=== PATIENT | female | born 1995 | race Caucasian/White ===

== ENCOUNTER 2020-07-29 22:01 | Observation (INO) | payer MEDICAID, SELFPAY ==
[2020-07-29 22:10] VITALS: BMI 30.1
[2020-07-29 22:11] VITALS: BP 130/76; PULSE 99; RESP 16; O2SAT 100; BMI 29.2
[2020-07-29 22:41] LABS: Basophils % 0.1 % (0.1-2.0); Eosinophils % 0.2 % (0.1-12.0); Hematocrit 40.4 % (37.0-47.0); Hemoglobin 12.8 g/dL (12.2-16.2); Lymphocytes % 7.6 % (10-50); Mean Corpuscular HGB Conc 31.7 g/dL (31.8-35.4); Mean Corpuscular Hemoglobin 27.2 pg (27.0-31.2); Mean Corpuscular Volume 85.8 fl (81-99); Monocytes # 0.6 K/mm3 (0.1-1.0); Monocytes % 4.6 % (1.7-9.3); Neutrophils # 11.4 K/mm3 (1.8-7.8); Neutrophils % 87.5 % (37.0-80.0); Platelet Count 262 K/mm3 (142-424); Red Blood Count 4.71 M/mm3 (4.20-5.40); Red Cell Distribution Width 12.1 % (11.5-17.5)
[2020-07-29 22:44] LABS: Microscopic, Urine URINE MICROSCOPIC (MICROSCOPIC)
[2020-07-29 22:44] LABS: MANUAL DIFFERENTIAL MANUAL DIFFERENTIAL (MANUAL DIFF)
--- NOTE | 2020-07-29 22:48 | CT_ITS ---
PROCEDURE: CT ABDOMEN PELVIS W CON CLINICAL INDICATION: abd pain Lower abdominal pain with nausea vomiting and diarrhea COMPARISON: No exams were available for comparison TECHNIQUE: IV Contrast: 75ML OPTIRAY 350 Oral Contrast None Axial images obtained with sagittal and coronal reformats. All CT scans at the facility use one or more dose reduction, viz: automated exposure control, ma/kV adjustment per patient size (including targeted exams where dose is matched to indication, i.e. head), or iterative reconstruction technique. FINDINGS: The liver, spleen, adrenal glands, pancreas, and gallbladder have an unremarkable appearance.. No renal or ureteral calculi. There is minimal prominence of the right renal pelvis and proximal ureter. No definite ureteral calculus however is evident. There is thickening of the appendix measuring up to 15 mm in diameter with thickened wall and stranding of the periappendiceal fat consistent with acute appendicitis. Minimal amount of fluid is noted in the periappendiceal region. No definite abscess or obvious free air. There is a 2.5 cm right ovarian cyst. Small amount fluid in the cul-de-sac is noted. There is grade 1 spondylitic spondylolisthesis of L5 on S1. IMPRESSION: 1. Findings consistent with acute appendicitis. 2. 2.5 cm right ovarian cyst with a small amount fluid noted in the cul-de-sac. Dictated by: He Guerrero MD 07/30/2020 05:45 He Guerrero MD in [place] 07/30/2020 05:45
[2020-07-29 22:50] LABS: Appearance,Urine CLEAR (Clear); Blood, Urine Negative (Negative); Color,Urine YELLOW (Yellow); Glucose,Urine (UA) Negative (Negative); Ketones,Urine 2+ (Negative); Leukocyte Esterase,Urine Negative (Negative); Nitrate,Urine Negative (Negative); PH,Urine 6.5 (5.0-8.5); Protein,Urine Negative (Negative); Specific Gravity, Urine 1.025 (1.005-1.030); Urobilinogen,Urine 0.2 EU/dl (0.2)
[2020-07-29 22:52] LABS: Urine Pregnancy, HCG Qual. Negative (Negative)
[2020-07-29 22:53] LABS: Alanine Aminotransferase 18 U/L (12-78); Albumin Level 4.4 g/dl (3.5-5.0); Alkaline Phosphatase 89 U/L (38-126); Amylase 62 U/L (30-110); Anion Gap 14.3 mEq/L (5-15); Aspartate Amino Transferase 24 U/L (14-36); Bilirubin,Indirect 1.5 mg/dL (0.0-0.9); Bilirubin,Total 1.5 mg/dl (0.2-1.3); Bilirubin,Unconjugated 1.5 mg/dL (0.0-1.1); Blood Urea Nitrogen 10 mg/dl (7-17); Calcium 9.6 mg/dl (8.4-10.2); Carbon Dioxide 24 mmol/L (22.0-30.0); Chloride 103 mmol/L (98-107); Creatinine Clearance Estimated 211 mL/min (50-200); Estimated Glomerular Filt Rate 152 ml/min (>60); GFR (African American) 183 ML/MIN (>60); Glucose 149 mg/dl (74-100); Lipase 49 U/L (23-300); Potassium 3.3 mmoL/L (3.5-5.1); Sodium 138 mmol/L (136-145); Total Protein,Serum 7.7 g/dl (6.3-8.2)
[2020-07-29 22:58] LABS: C-Reactive Protein 9.1 mg/L (0-4)
[2020-07-29 22:59] LABS: Bilirubin,Urine Negative (Negative)
[2020-07-29 23:00] LABS: Mucus,Urine 3+ /lpf
[2020-07-29 23:02] LABS: Hypochromasia 1+; Lymphocytes % 8 % (10-50); Monocytes % 1 % (2-9); Neutrophils % 86 % (42-76); Platelet Estimate Normal; Total Cells Counted 100
[2020-07-29 23:35] VITALS: BP 113/71; PULSE 106; RESP 16; O2SAT 99
--- NOTE | 2020-07-29 23:58 | HMH.EDNVD ---
ED Disposition Clinical Impression: Acute appendicitis Qualifiers: Acute appendicitis type: unspecified acute appendicitis type Qualified Code(s): K35.80 - Unspecified acute appendicitis Disposition: Admitted As Inpatient Condition on Discharge: Good Referrals: Dariel Gaston [Primary Care Provider] - - Critical Care Critical Care Time: No Attestation: On 07/29/20, the high probability of a clinically significant, sudden or life threatening deterioration of the following system(s) required my full and direct attention, intervention and personal management. The time I documented below is in addition to time spent performing reported procedures but includes the following listed in this critical care notation. Medical Decision Making - Medical Records Medical records reviewed: Yes: I reviewed the patient's medical records. - Moi Inquiry Pt receiving controlled substance: No Vital Signs: 07/29/20 22:11 07/29/20 23:35 Pulse Rate [Right Brachial] 99 H 106 H Respiratory Rate 16 16 Blood Pressure [Right Arm] 130/76 113/71 Blood Pressure Mean [Right Arm] 94 85 Blood Pressure Source [Right Arm] Automatic Cuff Blood Pressure Position [Right Arm] Sitting 02 Sat by Pulse Oximetry 100 99 Oxygen Delivery Method Room Air Room Air - Lab Data Lab results reviewed: Yes: I reviewed the patient's lab results. Lab Results 07/29/20 22:06: Urine Color Yellow, Urine Appearance Clear, Urine pH 6.5, Ur Specific [place] 1.025, Urine Protein Negative, Urine Glucose (UA) Negative, Urine Ketones 2+, Urine Blood Negative, Urine Nitrate Negative, Urine Bilirubin Negative, Urine Urobilinogen 0.2, Ur Leukocyte Esterase Negative, Ur Squamous Epith Cells 5-10, Urine Mucus 3+ 07/29/20 22:06: Urine HCG, Qual Negative 07/29/20 22:34: WBC 13.0 H, RBC 4.71, Hgb 12.8, Hct 40.4, MCV 85.8, MCH 27.2, MCHC 31.7 L, RDW 12.1, Plt Count 262, MPV 7.0 L, Neut % (Auto) 87.5 H, Lymph % (Auto) 7.6 L, [place] % (Auto) 4.6, Eos % (Auto) 0.2, Baso % (Auto) 0.1, Neut # (Auto) 11.4 H, Lymph # (Auto) 1.0, [place] # (Auto) 0.6, Eos # (Auto) 0.0, Baso # (Auto) 0.0, Total Counted 100, Neutrophils % (Manual) 86 H, Band Neutrophils % 5.0, Lymphocytes % (Manual) 8 L, Monocytes % (Manual) 1 L, Platelet Estimate Normal, Hypochromasia 1+ 07/29/20 22:34: Sodium 138, Potassium 3.3 L, Chloride 103, Carbon Dioxide 24, Anion Gap 14.3, BUN 10, Creatinine 0.50 L, Estimated Creat Clear 211, Estimated GFR 152, Est GFR ( Amer) 183, Glucose 149 H, Calcium 9.6, Total Bilirubin 1.5 H, Direct Bilirubin 0.0, Conjugated Bilirubin 0.0, Indirect Bilirubin 1.5 H, Unconjugated Bilirubin 1.5 H, AST 24, ALT 18, Alkaline Phosphatase 89, C-Reactive Protein 9.1 H, Total Protein 7.7, Albumin 4.4, Amylase 62, Lipase 49 Result diagrams: 07/29/20 22:34 07/29/20 22:34 Orders (Tests/Meds): ED MEDICATIONS Generic Name Dose Route Start Last Admin Trade Name Freq PRN Reason Stop Dose Admin Sodium Chloride 1,000 mls @ 999 mls/hr 07/29/20 22:15 07/29/20 22:38 Sod Chlor 0.9% 1000ml Bag IV 07/29/20 23:15 999 mls/hr .[id number] JOANN Administration Discontinued Medications Generic Name Dose Route Start Last Admin Trade Name Freq PRN Reason Stop Dose Admin Ioversol 75 ml 07/29/20 23:20 07/29/20 23:20 Ioversol-350 (74%) 100ml Vial IV 07/29/20 23:21 75 ml ONCE ONE Administration Protocol Morphine Sulfate 4 mg 07/29/20 22:11 07/29/20 22:38 Morphine 4mg/Ml Syringe IV 07/29/20 22:12 4 mg ONCE ONE Administration Ondansetron HCl 4 mg 07/29/20 22:11 07/29/20 22:38 Ondansetron 4mg/2ml Vial IV 07/29/20 22:12 4 mg ONCE ONE Administration Sodium Chloride 10 ml 07/29/20 23:20 07/29/20 23:20 Sodium Chloride 0.9% 10ml Syr (Rad Only) IV 07/29/20 23:21 10 ml ONCE ONE Administration ORDERS Category Date Time Status CT abdomen pelvis w con Stat Cat Scan 07/29/20 22:48 Taken Covid-19 IgG/IgM ([facility]) Stat Lab 07/30/20 00:07 Received - CT Data CT Sc
[2020-07-30] VITALS (22 sets, daily range): BP systolic 95–117; BP diastolic 44–76; PULSE 71–112; RESP 14–20; TEMP 36.6–37.8; O2SAT 95–100; BMI 32.0; BMI 32.1
--- NOTE | 2020-07-30 00:12 | PC.NURSE ---
Page out to surgeon network relations consultant at this time
--- NOTE | 2020-07-30 00:13 | PC.NURSE ---
on phone with Dr. Chambers at this time
--- NOTE | 2020-07-30 00:18 | PC.NURSE ---
page out to pharmacy at this time
[2020-07-30 00:28] LABS: Coronavirus 19 IgG Antibody Negative (Negative); Coronavirus 19 IgM Antibody Negative (Negative)
--- NOTE | 2020-07-30 01:10 | PC.NURSE ---
Arrived to floor via wheel chair @ 0106
--- NOTE | 2020-07-30 06:08 | PC.NURSE ---
Pt A&O x4. Does not have much of medical Hx except for chronic headaches that she states is caused by increased CSF pressure. She states she is suppose to take medication for it but hasn't for some time. She also states that she has had 3 children vaginal . No additional Hx. Pt has c/o pain to abdomen that she describes as sharp, stabbing pain. Morphine administered x1. Pt has had a shower and is NPO at this time. VSS. Call light within reach. No other concerns. Will continue to monitor.
--- NOTE | 2020-07-30 06:43 | HMH.GSHP ---
HPI HPI: This is a 24-year-old female who presents the emergency department overnight with increasing abdominal pain that was more significant in the right lower quadrant. Some associated nausea and vomiting with recent diarrhea. Evaluation revealed mild leukocytosis. A CT scan was obtained in the emergency department and she changes consistent with appendicitis. Surgical service was contacted for evaluation and management. This morning she states that she feels quite a bit better . No fevers or chills. Significant decrease nausea. Forwarded from emergency department evaluation: Chief complaint: Abdominal Pain Stated complaint: abdominal pain Time Seen by Provider: 07/29/20 23:00 Mode of Arrival: Ambulatory Source of Information: Patient, Medical Record Limitations: No Limitations Description of Symptoms (Recalled from ER Triage Doc. by RN): Patient reports right sided sharp abdominal pain that started this morning. Patient reports she had diarrhea yesterday that resolved but has been vomiting. - History of Present Illness HPI Narrative: progressive rt sided abd pain since 10 am with nausea and vomiting MD complaint: nausea, vomiting, abdominal pain Onset (ago): hour(s) Associated Abdominal Pain: Yes Location of pain: RLQ Severity: moderate Quality: constant Associated symptoms: denies other symptoms H History Medical History: Denies:: Cancer, Diabetes Mellitus Type 1, Diabetes Mellitus Type 2, MRSA *Have you ever received a pneumonia vaccine?: No *Have you received a flu vaccine this season?: No Amputation: No - *Social History Last grade of school completed: Some college Smoking Status: Light tobacco smoker Tobacco Type: smokeless tobacco # Packs/Day (cigarettes): 0 Alcohol Intake: current Alcohol Intake Frequency:: holidays/special occasions only *Occupational Status:: student *Travel in the last 8 weeks: None Family Hx:: Asthma, Cancer, Coronary Artery Disease, Diabetes, Heart Attack, Hyperlipidemia, Hypertension, Stroke, Thyroid Disorder, Substance abuse, Alcoholism Review of Systems - Constitutional Denies body ache(s) - Eyes Denies change in vision - ENT Denies difficulty swallowing - *Cardiovascular Denies chest pain - *Respiratory Denies cough - *Gastrointestinal Reports abdominal pain, Reports nausea, Reports vomiting, Denies vomiting blood - *Genitourinary Denies difficulty urinating - *Musculoskeletal Denies deformity - Integumentary/Breasts Denies new lesions - *Neurologic Reports headache(s), Reports other (possible pseutotumor cerbri ) - Psychiatric Denies anxiety - Endocrine Denies cold intolerance - Hematologic/Lymphatic Denies easy bleeding - Allergic/Immunologic Denies wheezing Meds Home Medications Medication Instructions Recorded Confirmed Type No Known Home Medications 07/30/20 07/30/20 History Allergies Allergy/AdvReac Type Severity Reaction Status Date / Time milk AdvReac Mild Verified 07/30/20 04:16 Exam Vital signs and Labs for Last 24 Hours: Temp Pulse Resp BP Pulse Ox 98.0 F 84 18 97/57 L 98 07/30/20 04:00 07/30/20 04:00 07/30/20 04:00 07/30/20 04:00 07/30/20 04:00 Laboratory Results - last 24 hr 07/29/20 22:06: Urine Color Yellow, Urine Appearance Clear, Urine pH 6.5, Ur Specific [place] 1.025, Urine Protein Negative, Urine Glucose (UA) Negative, Urine Ketones 2+, Urine Blood Negative, Urine Nitrate Negative, Urine Bilirubin Negative, Urine Urobilinogen 0.2, Ur Leukocyte Esterase Negative, Ur Squamous Epith Cells 5-10, Urine Mucus 3+ 07/29/20 22:06: Urine HCG, Qual Negative 07/29/20 22:34: WBC 13.0 H, RBC 4.71, Hgb 12.8, Hct 40.4, MCV 85.8, MCH 27.2, MCHC 31.7 L, RDW 12.1, Plt Count 262, MPV 7.0 L, Neut % (Auto) 87.5 H, Lymph % (Auto) 7.6 L, [place] % (Auto) 4.6, Eos % (Auto) 0.2, Baso % (Auto) 0.1, Neut # (Auto) 11.4 H, Lymph # (Auto) 1.0, [place] # (Auto) 0.6, Eos # (Auto) 0.0, Baso # (Auto) 0.0, Total Coun
--- NOTE | 2020-07-30 06:43 | PC.NURSE ---
Pt off floor for surgery
--- NOTE | 2020-07-30 07:22 | HMH.PHAVTE ---
[facility] Pharmacy VTE Monitoring - Patient Demographics Admission date: 07/30/20 Report Date: 07/30/20 Time: 07:22 Allergies/Adverse Reactions: Patient Allergies milk Adverse Reaction (Mild, Verified 07/30/20 04:16) Height: 1.63 m Weight: 85.502 kg Patient Problems: Current Active Problems Acute appendicitis (Acute) - VTE Risk Labs: VTE Related Lab Results Hgb 12.8 g/dL (12.2-16.2) 07/29/20 22:34 Hct 40.4 % (37.0-47.0) 07/29/20 22:34 Plt Count 262 K/mm3 (142-424) 07/29/20 22:34 BUN 10 mg/dl (7-17) 07/29/20 22:34 Creatinine 0.50 mg/dl (0.52-1.04) L 07/29/20 22:34 Estimated Creat Clear 211 mL/min (50-200) 07/29/20 22:34 VTE Score: 0 VTE Risk Level: Very Low Risk - Prophylaxis VTE Prophylaxis Ordered?: Yes Types of VTE Prophylaxis: TEDS Knee High Location of Applied Device: Bilateral Lower Extremeties
--- NOTE | 2020-07-30 07:23 | HMH.PHAINT ---
MED REC- PATIENT HAS FILLED ACETAZOLAMIDE AND TOPAMAX IN THE PAST BUT HAS NOT TAKEN THESE MEDICATIONS FOR SOME TIME. CURRENTLY TAKES NO MEDICATIONS.
--- NOTE | 2020-07-30 08:33 | HMH.OPNOTE ---
Date of procedure: 07/30/20 Pre-op Diagnosis:: Appendicitis Post-op Diagnosis:: Suppurative appendicitis Procedure performed:: Laparoscopic appendectomy Surgeon:: Jung Peace MD ELECTRICAL INSTALLATION SUPERVISOR:: Gilmer Wells Anesthesia: GETClaritza Estimated blood loss (mL): 10 Operative findings:: Enlarged appendix with severe inflammatory changes and suppuration No definitive evidence of perforation Operative note:: After informed consent was obtained the patient was taken to the operating room and placed in the supine position. General anesthesia was induced and her abdomen was prepped and draped in a sterile fashion. After infiltration local anesthetic an infraumbilical incision was made. A Veress needle was placed in position. The abdomen was insufflated. A 12 mm optical trocar was placed in position. Under direct visualization a 5 mm trocar was placed in the suprapubic position and an additional 5 mm trocar was placed in the left lower quadrant. Evaluation of the right lower quadrant revealed a small amount of lower abdominal/pelvic fluid. The fluid was evacuated. The appendix was identified and found to be severely inflamed with dense posterior adhesions. Elevation of blunt dissection was utilized to separate the appendix from posterior attachments to the peritoneum and small bowel. Suppuration was noted along the entire length of the appendix; however, no obvious perforation was noted. Harmonic wolfgang were utilized to take down the mesoappendix. An Endopath 45 stapling device was utilized to take the appendix at its base. A second device and load was utilized due to the initial device not creating a complete cut. The staple line did appear to be intact from the initial and secondary device. No sign of leak or injury was noted. The appendix was placed in a retrieval bag and removed through the infraumbilical trocar site. The right lower quadrant was thoroughly irrigated. No active bleeding or injury was noted. Close evaluation of the staple line showed no signs of bleeding and no signs of incomplete closure. Again, the entire staple line/margin appeared to be intact. Pneumoperitoneum was released as the trocars were removed. All wounds were irrigated. The fascia at the infraumbilical trocar site was reapproximated with 0 Ethibond. Skin was then closed with interrupted 4-0 Monocryl. Dressings were applied and the patient was transferred to recovery in stable condition after extubation. Condition: stable Disposition: PACU Specimens:: Appendix Complications:: No immediate
--- NOTE | 2020-07-30 08:42 | P.PN_ITS ---
[facility] Anesthesia Checklist - Patient Identification Patient Identification: Arm Band, Verbal (Name & ) - Structural Data Admitted From: Home Planned Operative Procedure/s: lap appy Consent for Planned Operative Procedure(s) Verified: Yes Verified Documents: History and Physical - NPO Status Verified Time NPO: 00:00 - Chart Verification Results Verified: CBC, BMP - Additional verifications Patient : No Anesthesia Reactions: No Hx Blood Transfusions: No Blood Transfusion Reaction: No Cephalosporin Allergy: No Previous Colonoscopy: No - Cardiovascular Assessment Heart Sounds: S1 & S2 Pulse Strength: Baseline Pulse Rhythm: Regular Peripheral Edema: No - Airway Assessment C-Spine Mobility Assessed: Yes TMJ Mobility Assessed: Yes Dentition: Good Dentition - Neurological Assessment Level of Consciousness: Awake, Alert, Appropriate Hx Seizures: No Numbness or tingling in extremities: No - Anesthesia Plan Anesthesia Risk discussed: Yes Anesthesia Plan: Verified ASA Class: II Anesthesia Type: General [facility] History I have reviewed the patient's past medical history: Yes Medical History: Denies:: Cancer, Diabetes Mellitus Type 1, Diabetes Mellitus Type 2, MRSA *Have you ever received a pneumonia vaccine?: No *Have you received a flu vaccine this season?: No Anesthesia experience/problems:: none Amputation: No - *Social History Last grade of school completed: Some college Smoking Status: Light tobacco smoker Tobacco Type: smokeless tobacco # Packs/Day (cigarettes): 0 Alcohol Intake: current Alcohol Intake Frequency:: holidays/special occasions only Substance Use Type: other *Occupational Status:: student *Travel in the last 8 weeks: None Family Hx:: Asthma, Cancer, Coronary Artery Disease, Diabetes, Heart Attack, Hyperlipidemia, Hypertension, Stroke, Thyroid Disorder, Substance abuse, Alcoholism
--- NOTE | 2020-07-30 08:43 | P.PN_ITS ---
[facility] Anesthesia Record Part I Intake, IV Amount: 800 Estimated blood loss (mL): 10 Urine output (mL): 500 Blood Products used (#): none Blood Pressure: 107/69 SaO2: 98 Pulse Rate: 77 Respiratory Rate: 20 Temperature: 97.9 F Patient is:: Drowsy, Stable Stable to PACU at:: 08:40
--- NOTE | 2020-07-30 09:27 | PC.NURSE ---
0907-detailed report called to JESSE Hernández 0910-pt transported to 2nd floor room 208 via hospital bed per JESSE Bucio and [facility] with merritt rails up and left in care of JESSE Hernández with bed locked in lowest position, vss, pt stable, family at bedside
--- NOTE | 2020-07-30 09:37 | HMH.ANESII ---
[facility] Anesthesia Record Part II Discharge Time: 09:10 Destination: Medical Surgical Department PACU nurse assessment reviewed?: Yes Patient Condition:: Good Anesthesia Complications:: None Swallowing reflex intact?: Yes Cyanosis?: No Blood Pressure: 103/60 Pulse Rate: 76 Temperature: 97.9 F Mental Status: Alert & Oriented Pain level:: 2 Nausea and/or vomitting:: None Intake, IV Amount: 25
[2020-07-30 10:58] LABS: Microscopic,Cath URINE MICROSCOPIC (MICROSCOPIC)
[2020-07-30 11:00] LABS: Appearance,Urine/Cath CLEAR (Clear); Bilirubin,Cath Negative (Negative); Blood, Urine/Cath Negative (Negative); Color,Urine/Cath YELLOW (Yellow); Glucose,Urine/Cath (UA) Negative (Negative); Ketones,Urine/Cath 1+ (Negative); Leukocyte Esterase,Cath Negative (Negative); Nitrate,Cath Negative (Negative); Protein,Urine/Cath Negative (Negative); Urobilinogen,Cath 0.2 EU/dl (0.2)
[2020-07-30 11:07] LABS: RBC,Urine/Cath Occasional # /hpf (0-3); Squamous Epithelial Ur./Cath Occasional #/hpf (0-5)
--- NOTE | 2020-07-30 16:55 | PC.NURSE ---
Addendum entered by Natalie Guzmán RN 07/30/20 18:39: Pt does report passing flatus. Original Note: Pt remains on room air w/ no s/s of resp distress. Reports burning sensation to abdomen, rating 3/10. Pt reports pain tolerable and has not requested pain medication at this point. Has voided twice since surgery w/o difficulty. Ambulates w/ standby assistance w/ no safety concerns. Tolerating clear liquid diet w/ no c/o nausea. Pt is A&O x4. Lungs CTA. Abdomen soft, tender w/ active BS in all quads. No BM this shift. 3 lap site incision, remain unchanged from initial assessment this AM. One below umbilicus has small amount of serosang drainage present. No edema noted. Pt requests not to wear SCUDS, was educated on prophylactic use. Call butts w/in reach. No needs voiced.
--- NOTE | 2020-07-30 19:14 | PC.NURSE ---
report given to maris
[2020-07-31] VITALS: BP 100/71; PULSE 98; RESP 18; TEMP 36.7; O2SAT 96
--- NOTE | 2020-07-31 01:47 | PC.NURSE ---
A&OX4. PANEL LAMINATOR EQUAL BILAT. LUNGS CLEAR T/O AUSCULTATION. TOLERATED RA WELL. PULSES +2, CAP REFILL <3SEC. ABDOMEN NOTED NONDISTENDED, ACTIVE BOWEL SOUNDS, SOFT AND RLQ TENDERNESS WITH PALPATION. 3 DRESSINGS NOTED TO ABDOMEN WITH UNCHANGED AMOUNT OF DRAINAGE FROM INITIAL ASSESSMENT. REPORTS PASSING FLATUS. REPORTS PAIN IN MID LOWER ABDOMINAL REGION AND SOME DISCOMFORT WITH DEEP INHALATION IN RUQ OF ABDOMEN, MEDICATED PER MAR WITH PRN PAIN MEDICATION, ON REASSESSMENT PT WAS NOTED RESTING IN BED WITH EYES CLOSED. TOLERATED CLEAR LIQUIDS WELL. AMBULATE INDEPENDENTLY IN ROOM, TOLERATED WELL. VSS. WILL CONTINUE TO MONITOR.
[2020-07-31 04:30] VITALS: BP 100/72; PULSE 62; RESP 18; TEMP 36.5; O2SAT 92
[2020-07-31 05:07] VITALS: BMI 33.7
[2020-07-31 06:15] LABS: Chloride 106 mmol/L (98-107); Sodium 137 mmol/L (136-145)
[2020-07-31 06:17] LABS: Basophils % 0.2 % (0.1-2.0); Eosinophils % 0.1 % (0.1-12.0); Hematocrit 32.2 % (37.0-47.0); Hemoglobin 10.2 g/dL (12.2-16.2); Lymphocytes % 29.7 % (10-50); Mean Corpuscular HGB Conc 31.5 g/dL (31.8-35.4); Mean Corpuscular Hemoglobin 27.4 pg (27.0-31.2); Mean Corpuscular Volume 86.8 fl (81-99); Mean Platelet Volume 7.4 fl (7.4-10.4); Monocytes # 0.4 K/mm3 (0.1-1.0); Monocytes % 5.6 % (1.7-9.3); Neutrophils # 4.3 K/mm3 (1.8-7.8); Neutrophils % 64.4 % (37.0-80.0); Platelet Count 221 K/mm3 (142-424); Red Blood Count 3.71 M/mm3 (4.20-5.40); Red Cell Distribution Width 12.3 % (11.5-17.5); White Blood Count 6.7 K/mm3 (4.8-10.8)
[2020-07-31 06:18] LABS: Creatinine Clearance Estimated 205 mL/min (50-200); Estimated Glomerular Filt Rate 123 ml/min (>60); GFR (African American) 149 ML/MIN (>60)
[2020-07-31 06:19] LABS: Anion Gap 7.9 mEq/L (5-15); Carbon Dioxide 26 mmol/L (22.0-30.0); Glucose 84 mg/dl (74-100)
[2020-07-31 06:27] LABS: Potassium 2.9 mmoL/L (3.5-5.1)
--- NOTE | 2020-07-31 06:27 | INFXCTL.NOTE ---
PT REPORTS URINE IS CLEAR AND YELLOW.
[2020-07-31 06:54] LABS: Blood Urea Nitrogen 7 mg/dl (7-17); Calcium 7.8 mg/dl (8.4-10.2)
[2020-07-31 07:54] VITALS: BP 98/61; PULSE 83; RESP 17; TEMP 36.7; O2SAT 100
--- NOTE | 2020-07-31 08:13 | HMH.GSPN ---
Subjective Patient reports: no new complaints, pain is less Progress Note: A&P (1) Acute appendicitis Status: Acute (2) Suppurative appendicitis Status: Acute Assessment and plan: Overall, doing well status post laparoscopic appendectomy. Continue antibiotics for now for suppurative nature of appendicitis Likely discharge home later today (3) Hypokalemia Status: Acute Assessment and plan: Replace potassium Exam Vital signs and Labs for Last 24 Hours: Temp Pulse Resp BP Pulse Ox 98.1 F 83 17 98/61 L 100 07/31/20 07:54 07/31/20 07:54 07/31/20 07:54 07/31/20 07:54 07/31/20 07:54 Laboratory Results - last 24 hr 07/30/20 07:10: Urine Color Yellow, Urine Appearance Clear, Urine pH 6.0, Ur Specific [place] 1.020, Urine Protein Negative, Urine Glucose (UA) Negative, Urine Ketones 1+, Urine Blood Negative, Urine Nitrate Negative, Urine Bilirubin Negative, Urine Urobilinogen 0.2, Ur Leukocyte Esterase Negative, Urine RBC Occasional, Urine WBC 3-5, Ur Squamous Epith Cells Occasional 07/31/20 05:34: WBC 6.7 D, RBC 3.71 L, Hgb 10.2 L, Hct 32.2 L, MCV 86.8, MCH 27.4, MCHC 31.5 L, RDW 12.3, Plt Count 221, MPV 7.4, Neut % (Auto) 64.4, Lymph % (Auto) 29.7, [place] % (Auto) 5.6, Eos % (Auto) 0.1, Baso % (Auto) 0.2, Neut # (Auto) 4.3, Lymph # (Auto) 2.0, [place] # (Auto) 0.4, Eos # (Auto) 0.0, Baso # (Auto) 0.0 07/31/20 05:34: Sodium 137, Potassium 2.9 L*, Chloride 106, Carbon Dioxide 26, Anion Gap 7.9, BUN 7 D, Creatinine 0.60, Estimated Creat Clear 205, Estimated GFR 123, Est GFR ( Amer) 149, Glucose 84, Calcium 7.8 L D I & O for Last 24 hours: Intake & Output 10/10/20 10/11/20 10/12/20 10/13/20 11:59 11:59 11:59 11:59 Intake Total 1180 / 1180 1717 / 1717 Balance 1180 / 1180 1717 / 1717 Weight 188 lb 8 oz 197 lb 9 oz - Constitutional no acute distress - *Routine Respiratory Exam Absent: respiratory distress - *Routine Cardiovascular Exam Present: RRR - *Routine Abdominal Exam Present: soft Comments: dressings intact. no erythema.
[2020-07-31 08:20] VITALS: O2SAT 100
--- NOTE | 2020-07-31 10:24 | PC.NURSE ---
umbilical incision cleaned with alcohol and re-dressed with telfa and tegaderm per Dr. Peace's instruction. Patient tolerated well.
--- NOTE | 2020-07-31 11:58 | HMH.DCSUM ---
General - General Admission date:: 07/30/20 Discharge date: 07/31/20 HPI HPI: This is a 24-year-old female who presents the emergency department overnight with increasing abdominal pain that was more significant in the right lower quadrant. Some associated nausea and vomiting with recent diarrhea. Evaluation revealed mild leukocytosis. A CT scan was obtained in the emergency department and she changes consistent with appendicitis. Surgical service was contacted for evaluation and management. This morning she states that she feels quite a bit better . No fevers or chills. Significant decrease nausea. Forwarded from emergency department evaluation: Chief complaint: Abdominal Pain Stated complaint: abdominal pain Time Seen by Provider: 07/29/20 23:00 Mode of Arrival: Ambulatory Source of Information: Patient, Medical Record Limitations: No Limitations Description of Symptoms (Recalled from ER Triage Doc. by RN): Patient reports right sided sharp abdominal pain that started this morning. Patient reports she had diarrhea yesterday that resolved but has been vomiting. Hospital Course Hospital Course: She underwent laparoscopic appendectomy. Please see operative report for detail. Significant suppurative changes were noted. Postoperatively, she progressed well. She was maintained on Zosyn secondary to the suppurative nature of her appendicitis. She remained afebrile with stable and normal vital signs and was deemed appropriate for discharge home on the afternoon of postoperative day 1. She was found to have hypokalemia with a potassium of 2.9 on the morning of postoperative day 1. Replacement was implemented and follow-up will be ongoing. She was without symptoms. Condition at discharge: As stated above, she was afebrile with stable and normal vital signs. She was ambulating without difficulty and tolerating slow advancement of her diet. Objective Vital signs: Temp Pulse Resp BP Pulse Ox 98.1 F 83 17 98/61 L 100 07/31/20 07:54 07/31/20 07:54 07/31/20 07:54 07/31/20 07:54 07/31/20 08:20 no acute distress - *Routine HEENT Exam Head: Present: normocephalic Eye: Absent: scleral injection ENT: Present: mucous membranes moist - *Routine Neck Exam Present: full ROM - Routine Chest/Breast/Axilla Exam Chest wall: Absent: tenderness - *Routine Respiratory Exam Absent: respiratory distress - *Routine Cardiovascular Exam Present: RRR - *Routine Abdominal Exam Present: soft - *Routine Rectal Exam Visual: Absent: lindsey blood - *Routine Exam Patient deferred: external exam - *Routine Extremities Exam Present: full ROM - Routine Back/Spine/Pelvis Exam Back/Spine: Present: full ROM - *Routine Skin Exam Absent: erythema - *Routine Neurological Exam Present: alert - Routine Psychiatric Exam Present: normal affect Results Labs on day of discharge: Labs from last 24 hours 07/31/20 07/31/20 05:34 05:34 WBC 6.7 D RBC 3.71 L Hgb 10.2 L Hct 32.2 L MCV 86.8 MCH 27.4 MCHC 31.5 L RDW 12.3 Plt Count 221 MPV 7.4 Neut % (Auto) 64.4 Lymph % (Auto) 29.7 Powell % (Auto) 5.6 Eos % (Auto) 0.1 Baso % (Auto) 0.2 Neut # (Auto) 4.3 Lymph # (Auto) 2.0 Powell # (Auto) 0.4 Eos # (Auto) 0.0 Baso # (Auto) 0.0 Sodium 137 Potassium 2.9 L* Chloride 106 Carbon Dioxide 26 Anion Gap 7.9 BUN 7 D Creatinine 0.60 Estimated Creat Clear 205 Estimated GFR 123 Est GFR ( Amer) 149 Glucose 84 Calcium 7.8 L D DS: Diagnosis - Discharge Diagnosis (1) Suppurative appendicitis Status: Acute (2) Hypokalemia Status: Acute Discharge Plan - Patient Discharge Instructions ACTIVITY: No heavy lifting DIET: advance to your usual diet Patient Instructions: How to Care for a Surgical Wound, DI for Appendicitis -- Adult, DI for Surgical Site Infection, Appendectomy -- Laparoscopic Surgery - Follow u
[2020-07-31 12:16] LABS: Potassium 3.6 mmoL/L (3.5-5.1)
--- NOTE | 2020-07-31 13:40 | PC.NURSE ---
all care and charting done under my direct supervision
== END 2020-07-31 13:41 | disposition home or self-care (01) ==
LOC: ER 07-30 00:23 → 2ND 07-30 00:50
PROVIDERS: Admitting Provider Surgery; Emergency Provider Emergency Medicine; PCP Family Medicine; Visit Provider Surgery
PROC: (CPT 44950; principal; 2020-07-30 07:30)
DX: K35.80 Unspecified acute appendicitis (principal); E87.6 Hypokalemia; Z23 Encounter for immunization
CPT/HCPCS: 44970; 74177; 80048; 80076; 81001; 81025; 82150; 83690; 84132; 85007; 85025; 86140; 86328; 88304; 90686; 96365; 96375; 99284; G0378; J2405; J2543; J2710; Q9967

== ENCOUNTER 2020-08-21 08:31 | Emergency (ER) | payer MEDICAID, SELFPAY ==
[2020-08-21 08:44] VITALS: BP 111/76; PULSE 87; RESP 17; TEMP 37.1; O2SAT 98; BMI 29.2
--- NOTE | 2020-08-21 08:55 | XR_ITS ---
PROCEDURE: XR ANKLE LT MIN 3V CLINICAL INDICATION: ankle pain and swelling COMPARISON: No exams were available for comparison FINDINGS: No fracture or dislocation. No lytic or blastic change. There is normal mineralization. The joint spaces are well-preserved. No significant degenerative/arthritic changes. No erosive changes evident. Other findings:None. IMPRESSION: No acute findings. Dictated by: He Guerrero MD 08/21/2020 10:26 He Guerrero MD in [place] 08/21/2020 10:26
--- NOTE | 2020-08-21 09:30 | HMH.EDGENADL ---
ED Disposition Clinical Impression: Left ankle sprain Qualifiers: Encounter type: initial encounter Involved ligament of ankle: anterior talofibular ligament Qualified Code(s): S93.492A - Sprain of other ligament of left ankle, initial encounter Disposition: Home, Self-Care Condition on Discharge: Good Referrals: Dariel Gaston [Primary Care Provider] - - Critical Care Critical Care Time: No Attestation: On 08/21/20, the high probability of a clinically significant, sudden or life threatening deterioration of the following system(s) required my full and direct attention, intervention and personal management. The time I documented below is in addition to time spent performing reported procedures but includes the following listed in this critical care notation. Medical Decision Making - Medical Records Medical records reviewed: Yes: I reviewed the patient's medical records. - Moi Inquiry Pt receiving controlled substance: No Vital Signs: 08/21/20 08:44 Temperature 98.7 F Temperature Source Oral Pulse Rate [Left] 87 Respiratory Rate 17 Blood Pressure [Right Arm] 111/76 Blood Pressure Mean [Right Arm] 87 Blood Pressure Source [Right Arm] Automatic Cuff Blood Pressure Position [Right Arm] Sitting 02 Sat by Pulse Oximetry 98 Oxygen Delivery Method Room Air Orders (Tests/Meds): ORDERS Category Date Time Status XR ankle LT min 3V Stat Exams 08/21/20 08:55 Taken - Radiology Data #1 Image(s): Ankle Image Reviewed: Yes I reviewed the patient's radiology results, Yes I reviewed the patient's radiology image Preliminary Findings: Normal/NAD, No Fracture Seen - Reevaluation(s) Time: 09:34 Reevaluation #1: On reevaluation, patient is feeling better. No evidence of fracture. Repeat abdominal exam is normal. Tolerating oral intake. Patient needs follow-up with primary surgeon. Given strict return precautions. Verbalized understanding. Medical Decision Narrative: 25-year-old female presented to the emergency department with ankle pain. Consistent with ankle sprain. X-ray will be obtained for possible fracture. With regards to the patient's abdominal pain, appears to be chronic postsurgical. Patient is to follow-up with her primary surgeon. There is no evidence of acute abdomen. She is tolerating oral intake. Hemodynamically stable. Afebrile. General Adult HPI - General Chief complaint: PAIN Stated complaint: stomach pain,AO [id number] right ankle Time Seen by Provider: 08/21/20 08:50 Mode of Arrival: Ambulatory Limitations: No Limitations Description of Symptoms (Recalled from ER Triage Doc. by RN): left ankle pain. Abdominal pain. Appendix taken out 3 weeks ago. Denies N/V/D - History of Present Illness HPI narrative: This is a 25-year-old female presented to the emergency department with left ankle pain. The patient states that she was getting out of the car when her foot was asleep. She rolled her ankle and states that she hit it on the concrete. Since then she has been having some pain and swelling in the ankle. Worse on the lateral side. Patient is able to bear weight, however it is tender. She denies any other injuries. Of note, the patient is endorsing some abdominal discomfort for the last 3 weeks. She had her appendix removed at that time. She does feel some diffuse cramping. There is no focal tenderness. Patient is still tolerating oral intake without any difficulties. She has not had any fevers or chills. No vomiting or diarrhea. She did have any chest pain or shortness of breath. No headache or change in vision. - Related Data Home Medications Medication Instructions Recorded Confirmed Potassium Chloride [K-Tab ER 20 20 meq PO BID 08/21/20 08/21/20 mEq] Allergies Allergy/AdvReac Type Severity Reaction Status Date / Time milk AdvReac Mild Verified 08/21/20 09:04 [facility] History - Hepatitis A Screen Drug use history?: No High risk sexu
[2020-08-21 09:32] VITALS: BP 111/76; PULSE 87; RESP 17; TEMP 37.1; O2SAT 98
== END 2020-08-21 09:45 | disposition home or self-care (01) ==
PROVIDERS: Emergency Provider Emergency Medicine; PCP Family Medicine
DX: S93.402A Sprain of unspecified ligament of left ankle, initial encounter (principal); X50.1XXA Overexertion from prolonged static or awkward postures, initial encounter; Y92.89 Other specified places as the place of occurrence of the external cause; F17.290 Nicotine dependence, other tobacco product, uncomplicated
CPT/HCPCS: 73610; 99282

== ENCOUNTER → 2021-09-20 20:36 | Outpatient (CLI) | payer MEDICAID, SELFPAY | PROVIDERS: PCP Family Medicine; Visit Provider Nurse Practitioner Family | DX: U07.1 COVID-19 (principal) | CPT/HCPCS: C9803; U0003; U0005 ==

== ENCOUNTER 2021-10-28 18:51 | Emergency (ER) | payer MEDICAID, SELFPAY ==
[2021-10-28 19:55] VITALS: BP 122/84; PULSE 94; RESP 20; TEMP 37; O2SAT 99; BMI 32.5
--- NOTE | 2021-10-28 20:15 | HMH.EDUTC ---
[facility] [place] Clinical Impression: Exposure to COVID-19 virus, Viral syndrome Disposition: Home, Self-Care Condition on Discharge: Good Instructions: Preventing the Spread of Coronavirus Discharge Instructions, DI for COVID-19 (Suspected or Confirmed ) Additional Instructions: Drink plenty of fluids. Take tylenol for pain or fever. Return if you begin to have difficulty breathing. Follow up with your regular doctor. GO TO THE ER FOR ANY WORSENING SYMPTOMS Quarantine until you know the results of your covid-19 test. If it is positive, the health department should call you and give you further instructions about your length of Quarantine and other things. Notify your school or workplace of your results and follow their instructions regarding return to work/school. Referrals: Dariel Gaston [Primary Care Provider] - Forms: Work/School Release Time of Disposition: 20:18 Medical Decision Making - Medical Records Medical records reviewed: No: I reviewed the patient's medical records. - Moi Inquiry Pt receiving controlled substance: No Vital Signs: 10/28/21 19:55 Temperature 98.6 F Temperature Source Oral Pulse Rate [Right Brachial] 94 H Respiratory Rate 20 Blood Pressure [Right Arm] 122/84 Blood Pressure Mean [Right Arm] 96 Blood Pressure Source [Right Arm] Automatic Cuff Blood Pressure Position [Right Arm] Sitting 02 Sat by Pulse Oximetry 99 Oxygen Delivery Method Room Air Orders (Tests/Meds): ORDERS Category Date Time Status Covid-19 Nasal PCR ([facility] [place]) Routine Lab 10/28/21 20:08 Ordered [facility] [place]PI - General Stated complaint: covid test Time Seen by Provider: 10/28/21 20:16 Mode of Arrival: Ambulatory Source of Information: Patient Limitations: No Limitations Description of Symptoms (Recalled from Triage Doc. by RN): PATIENT NEEDING COVID TEST TO RETURN TO WORK AFTER DIRECT EXPOSURE. C/O HEADACHE AND SORE THROAT HEENT Symptoms (Recalled from RN notes): Yes Resp Symptoms (Recalled from RN notes): No Skin Symptoms (Recalled from RN notes): No MS Symptoms (Recalled from RN notes): No Functional Status (Recalled from RN notes): WNL - History of Present Illness Provider Complaint: She was exposed to covid-19 about 5 days ago. She started having a head ache and scratchy throat today. She had covid-19 about 3 months ago. She denies any cough or congestion. - Related Data Home Medications Medication Instructions Recorded Confirmed Potassium Chloride [K-Tab ER 20 20 meq PO BID 08/21/20 06/11/21 mEq] acetazolamide 250 mg tablet 250 mg PO DAILY 06/11/21 06/11/21 metformin 500 mg tablet 500 mg PO DAILY 06/11/21 06/11/21 trazodone 50 mg tablet 50 mg PO HS PRN 06/11/21 06/11/21 Allergies Allergy/AdvReac Type Severity Reaction Status Date / Time milk AdvReac Mild Verified 06/11/21 12:27 - Worker's Comp Is this a Worker's Comp case?: No [facility] [place] History - Hepatitis A Screen Drug use history?: No High risk sexual behaviors?: No History of sexually transmitted infection?: No Currently employed?: No Childcare worker?: No Do you have indoor plumbing?: Yes Do you have electricity?: Yes Attestation statement:: This patient has been screened for Hepatitis A risk factors. I have reviewed the patient's past medical history: Yes Medical History: Reports:: Migraine Denies:: Cancer, Diabetes Mellitus Type 1, Diabetes Mellitus Type 2, Internal Pacemaker, MRSA, Seizures Other Medical History: Denies: Blood Transfusion Reaction Other Surgeries: Yes: Appendectomy. No: Pacemaker Amputation: No Fractures: No - Social History Smoking Status: Light tobacco smoker Tobacco Type: smokeless tobacco # Packs/Day (cigarettes): 0 Alcohol Intake: never Alcohol Intake Frequency:: holidays/special occasions only Substance Use Type: other Occupational Status: other Housing: apartment Household Members: significant other Family Hx:: Asthma, Cancer, Coronary Artery Disease, Di
[2021-10-28 20:17] VITALS: BP 122/84; PULSE 94; RESP 20; TEMP 37; O2SAT 99
== END 2021-10-28 20:22 | disposition home or self-care (01) ==
PROVIDERS: Emergency Provider Nurse Practitioner Family; PCP Family Medicine
DX: B34.9 Viral infection, unspecified (principal); Z20.822 Contact with and (suspected) exposure to COVID-19; F17.290 Nicotine dependence, other tobacco product, uncomplicated
CPT/HCPCS: 99202; C9803; G0463; U0003; U0005

== ENCOUNTER 2024-10-20 13:30 | Outpatient (CLI) | payer BC, SELFPAY ==
--- NOTE | 2024-10-20 13:32 | MR_ITS ---
FINAL REPORT TECHNIQUE: Multiplanar and multisequence MR imaging was obtained through the thoracic spine. CLINICAL HISTORY: post laminectomy syndrome (spinal cord stimulator workup , evaluate patency of thoracic canal for placement of percutaneous stimulator lead , entry point t12/l1 termination of tip likely t7 superior endplate ) this is on patients order to note COMPARISON: None FINDINGS: There is normal alignment of the thoracic vertebral bodies in the sagittal plane. Vertebral body height is preserved. There is no bone marrow edema or pathologic marrow replacement. Signal intensity within the substance of the spinal cord is normal. No acute paraspinal abnormality. There is no focal disc herniation, central canal stenosis, or significant foraminal narrowing. IMPRESSION: Unremarkable MR of the thoracic spine without contrast. Reviewed, Interpreted and Dictated by Tea De La Rosa MD Transcribed by Krystina Marroquin Authenticated and [facility]
== END 2024-10-20 23:59 | disposition home or self-care (01) ==
LOC: RAD 13:30
PROVIDERS: PCP Family Medicine; Visit Provider Anesthesiology
DX: M96.1 Postlaminectomy syndrome, not elsewhere classified (principal)
CPT/HCPCS: 72146

== ENCOUNTER 2024-11-28 16:13 | Outpatient (CLI) | payer BC, SELFPAY ==
[2024-11-28 17:19] LABS: Hemoglobin A1C 4.4 % (4.0-6.0)
== END 2024-11-28 23:59 | disposition home or self-care (01) ==
LOC: LAB 16:14
PROVIDERS: PCP Family Medicine; Visit Provider Anesthesiology
DX: M96.1 Postlaminectomy syndrome, not elsewhere classified (principal)
CPT/HCPCS: 36415; 83036

== ENCOUNTER 2025-05-12 13:00 | Outpatient (RCR) | payer BC, SELFPAY | END 2025-05-12 23:59 | disposition home or self-care (01) | LOC: PT 13:00 | PROVIDERS: Visit Provider Physician Assistant | DX: M96.1 Postlaminectomy syndrome, not elsewhere classified (principal) | CPT/HCPCS: 97110; 97112; 97162; 97530 ==

== ENCOUNTER 2025-06-14 10:00 | Outpatient (RCR) | payer BC, SELFPAY | END 2025-06-14 23:59 | disposition home or self-care (01) | LOC: PT 10:00 | PROVIDERS: Visit Provider Physician Assistant | DX: M96.1 Postlaminectomy syndrome, not elsewhere classified (principal) | CPT/HCPCS: 97110; 97530 ==

== ENCOUNTER 2025-07-18 11:00 | Outpatient (RCR) | payer BC, SELFPAY | END 2025-07-18 23:59 | disposition home or self-care (01) | LOC: PT 11:00 | PROVIDERS: Visit Provider Physician Assistant | DX: M96.1 Postlaminectomy syndrome, not elsewhere classified (principal) | CPT/HCPCS: 97110; 97112; 97530 ==

== ENCOUNTER 2025-08-08 11:00 | Outpatient (RCR) | payer BC, SELFPAY | END 2025-08-08 23:59 | disposition home or self-care (01) | LOC: PT 11:00 | PROVIDERS: Visit Provider Physician Assistant | DX: M96.1 Postlaminectomy syndrome, not elsewhere classified (principal) | CPT/HCPCS: 97110; 97530 ==

== ENCOUNTER 2025-08-10 10:08 | Outpatient (CLI) | payer BC, SELFPAY ==
--- NOTE | 2025-08-10 10:15 | XR_ITS ---
FINAL REPORT CLINICAL HISTORY: SPONDYLOSIS - CHECKING FOR SPINAL STIMULATOR PLACEMENT FOR MRI FINDINGS: CERVICAL SPINE Three views were obtained. There is no acute fracture. The disc spaces are well-preserved. There is no malalignment. IMPRESSION: No acute process. THORACIC SPINE Two views were obtained. There is no acute fracture. There are minimal degenerative changes. There is no malalignment. There is very minimal endplate spurring in the mid and lower thoracic spine. A spinal stimulator is seen in the dorsal spinal canal with the stimulator lead tip at the T7 level. IMPRESSION: Minimal degenerative changes. LUMBAR SPINE Three views were obtained. There is no acute fracture. The disc spaces are well-preserved. Patient is status post fusion at L5-S1. There is minimal anterolisthesis of L5 on S1. IMPRESSION: Surgical changes in the lumbosacral junction. Reviewed, Interpreted and Dictated by Dominga Hill MD Transcribed by Radha Flores Authenticated and . [facility]
--- OUTSIDE RECORDS SUMMARY | 2025-08-10 10:46 | XMS_ITS | Clinical Summary ---
Author Organization [facility] Address [address] [place] [address] Phone Care Team Providers Care Insole Channeler Name Role Phone Nazia Gallegos MD Unavailable [phone] Dariel Gaston DO Primary Care Provider [phone] Dee Dee Cutler MD Unavailable [phone] Allergies Active Allergy Reactions Criticality Noted Date Comments Milk Nausea And Vomiting Medium 09/19/2020 Medications * This document contains information received from the source organization and may not represent a complete record from that organization. tirzepatide, weight loss, (ZEPBOUND) 10 mg/0.5 mL SubQ Pen InjectorIndicat ions:Obesity, Class I, BMI 30-34.9 Subcutaneous (Inject under the skin) 10 mg once a week. 4 mL 11 5 Active DULoxetine (CYMBALTA) 30 mg Oral Capsule, Delayed Release(E.C.)In dications:Curre nt moderate episode of major depressive disorder without prior episode (HCC) Take 1 Capsule by mouth daily. 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 Baseline HVF with scattered defects OD > OS. OCT nfl demonstrates significant improvement in thickness OU and dilated exam also with marked improvement from initial presentation. This improvement continues on exam today. Patient has seen neurosurgery at and they advised patient to have a consult with ophthalmology to determine need for surgery. Patient states not going back to and doesn't want to return. Most recently saw neurosurgery in [place] and a stent was attempted but aborted due to pre-existing patency. Patient was offered shunt, ON fenestration, or continued diamox. Patient chose to continue diamox. Most recent repeat HVF stable OD slight worsening OS. Will repeat this. Continue diamox. Exam improved. Discussed importance of compliance with medication and communication with prescribing providers. Assessment & Plan (10/24/2021 3:43 PM EST): Patient with marked elevation OU consistent with elevated ICP on initial presentation. Baseline HVF with scattered defects OD > OS. OCT nfl demonstrates significant improvement in thickness OU and dilated exam also with marked improvement from initial presentation. This improvement remains stable. Patient has seen neurosurgery at and they advised patient to have a consult with ophthalmology to determine need for surgery. Patient states not going back to and doesn't want to return. Patient to continue medication as previously prescribed (diamox). Patient states she did not have any refills on the diamox so she stopped, has not taken since 08/2021. Patient states neurology is unaware that she is not on medication. Most recent repeat HVF stable OD slight worsening OS. Discussed importance of compliance with medication and communication with prescribing providers. Assessment & Plan (10/21/2021 1:25 PM EST): Patient with marked elevation OU consistent with elevated ICP on initial presentation. Baseline HVF with scattered defects OD > OS. OCT nfl demonstrates significant improvement in thickness OU and dilated exam also with marked improvement from initial presentation. Patient has seen neurosurgery at and they advised patient to have a consult with ophthalmology to determine need for surgery. Patient states not going back to and doesn't want to return. Patient to continue medication as previously prescribed (diamox) Repeat HVF stable OD slight worsening OS. Assessment & Plan (04/26/2021 11:55 AM EDT): Patient with marked elevation OU consistent with elevated ICP on initial presentation. Baseline HVF with scattered defects OD > OS. OCT nfl demonstrates significant improvement in thickness OU and dilated exam also with marked improvement from initial presentation. Patient has seen neurosurgery at and they advised patient to have a consult with ophthalmology to determine need for surgery. Patient states not going back to and doesn't want to return. Patient to continue medication as previously prescribed (diamox) Repeat HVF Assessment & Plan (08/20/2020 1:58 PM EST): Patient with marked elevation OU consistent with elevated ICP on initial presentation. Baseline HVF with scattered defects OD > OS. OCT nfl demonstrates significant improvement in thickness OU and dilated exam also with marked improvement. MRI/MRV consistent with elevated ICP and venous stenosis. Patient has seen neurosurgery at and they advised patient to have a consult with ophthalmology to determine need for surgery. Discussed today's findings with patient and she will proceed with ophthalmology evaluation to determine next best steps. Patient to continue medication as previously prescribed. Assessment & Plan (05/01/2020 9:08 AM EDT): Patient with marked elevation OU consistent with elevated ICP. Baseline HVF with scattered defects OD > OS. OCT nfl demonstrates significant thickening OU. MRI/MRV consistent with elevated ICP and venous stenosis. Agree with proceeding as planned with neurology/neurosurgery. Assessment & Plan (04/19/2020 11:37 AM EDT): Patient with marked elevation OU consistent with elevated ICP. Will obtain baseline HVF. OCT nfl demonstrates significant thickening OU. MRI/MRV consistent with elevated ICP and venous stenosis. Agree with proceeding as planned with neurology/neurosurgery. Normal labor 11/18/2016 Decreased movement 11/03/2016 Lost custody of children 10/06/2016 Overview (10/06/2016): Attends family court. Two oldest children are under temporary care of Keily's father and step mother Custody lost february 2016 d/t oldest having a black eye suspected trauma from fob? Under Psychologist care Dr. Shaikh Supervision of normal in first trimest er 05/14/2016 Overview (10/06/2016): CNM pt It's a BOY! Lanxton PNL wnl Boy baby Anatomy ok Declined quad / cf / flu shot GCT 175--> GTT wnl Resolved Problems Problem Noted Date Diagnosed Date Resolved Date (normal spontaneous vaginal delivery) 11/19/2016 12/22/2016 Overview (11/19/2016): VMI- Lanxton 7# 10oz circ btl Nuchal cord with compression , delivered, current hospitalization 11/19/2016 12/22/2016 uterine contractions in third trimester, antepartum 11/04/2016 12/22/2016 Uterine irritability 11/03/2016 017 Short interval between pregn ancies complicating in first trimester, antepartum 05/14/2016 12/22/2016 Overview (05/14/2016): Last baby April 2015 (spontaneous vaginal delivery) 04/28/2015 05/14/2016 Overview (04/28/2015): Male @ 1114 Encounter for suspected yadira ature rupture of amniotic membranes, with rupture of membranes not found 04/22/2015 06/12/2015 Overview (04/22/2015): 36.2wk 36 weeks gestation of 04/22/2015 06/12/2015 Overview (04/22/2015): 36.2wk IUP r/o PPROM labor in third trime ster without delivery 04/22/2015 06/12/2015 Overview (04/22/2015): 36.2wk IUP Vaginal bleeding during , antepartum 04/11/20 15 06/12/2015 Overview (04/11/2015): 34.5wk IUP Rubella non-immune status, antepartum 12/18/2014 06/12/2015 Overview (12/18/2014): MMR pp Supervision of normal 10/23/2014 06/12/2015 Overview (01/15/2015): CNM PT PNLs NL except for Rubella non immune Declined Quad, CF 11/20/14 It's a boy! Yara Schmid Irregular periods 10/23/2014 12/18/2014 Overview (10/23/2014): U/S 10/23/2014----> Recommend correction of the CANELO to 05/18/2015, as well as a repeat scan at 20 weeks gestation to evaluate anatomy. Encounters Date Type Department Care Team Description 05/16/2025 4:15 PM EDT Office Visit [facility] [address] [place] [address] Dariel Gaston DO Acute bacterial sinusitis (Primary Dx); Trujillo's palsy from Last 3 Months Immunizations Immunization Administration Dates Next Due DTP/HiB 11/18/1996,01/28/1996,1995 DTaP, Unspecified Formulation 06/01/2000 HPV Quadrivalent 05/27/2011,12/09/2010, 0 Hepatitis B, Adult 05/17/2020,06/18/2019 Hepatitis B, Ped/Adol 08/10/1996 IPV 06/01/2000 Influenza Vaccine Quadrivalent PF 09/03/2023,,08/02/2019 Influenza Vaccine, Unspecifi ed Formulation 07/30/2020 MMR 04/29/2015,06/01/2000,11/18/1996 MMRV 05/17/2020 OPV-Trivalent 01/28/1996,1995 PPD Test 05/16/2020,06/18/2019 Tdap 05/17/2020, 7,04/29/2015,2006 Varicella 02/21/1997 Surgical History Surgery Date Site/Laterality Comments [place] GUIDED LUMBAR PUNCTURE DIAGNOSTIC 04/23/2020 FL GUIDED LUMBAR PUNCTURE DIAGNOSTIC 04/23/2020 EDG XRAY APPENDECTOMY 07/31/2020 FL GUIDED LUMBAR PUNCTURE DIAGNOSTIC 05/06/2021 FL GUIDED LUMBAR PUNCTURE DIAGNOSTIC 05/06/2021 EDG XRAY Medical History Medical History Date Comments Irregular periods 10/23/2014 Allergy Family History Medical History Relation Name Comments Diabetes Maternal Grandfather Hypertension Maternal Grandfather Cancer Paternal Aunt Arthritis Paternal Grandmother Marlen Joseph Diabetes Paternal Grandmother Marlen Joseph Glaucoma Paternal Grandmother Marlen Joseph High Blood Pressure Paternal Grandmother Marlen Joseph Stroke Paternal Grandmother Marlen Opal Cancer Paternal Uncle Cataracts Neg Hx Macular Degen Neg Hx Relation Name Status Comments Father Alive Maternal Grandfather Maternal Grandmother Alive Mother Alive Paternal Aunt Paternal Grandmother Marlen Joseph Paternal Uncle Social History Tobacco Use Types Packs/Day Years Used Date Smoking Tobacco: Former Smokeless Tobacco: Never Tobacco Cessation:Counseling Given: Not Answered Alcohol Use Standard Drinks/Week Comments Yes 0 (1 standard drink = 0.6 oz pur e alcohol) very rare PHQ-2 Answer Date Recorded PHQ-2 Total Score 0 01/09/2025 Sexually Active Control Partners Comments Yes Male Comments No Sex and Gender Information Value Date Recorded Sex Assigned at Not on file Legal Sex Female 11:19 AM EDT Gender Identity Not on file Sexual Orientation Not on file Obstetrics History Para Term AB IAB SAB Ectopic Multiple Livin g Live Births 3 3 3 0 0 0 0 0 0 3 3 Date Outcome GA Total Labor Labor/2nd/3rd Weight Sex Type Anes PTL Flores A1 A5 Name Clin Term M Vag-S pont Livin g 2014 Term 37w 1d 0h 06m 0h 06m 6 lb 13 oz (3.09 kg) M Vag-S pont Epidur al N Livin g 9 9 Downto n, Charity Santos, CN Delivery Location:[facility] 2016 Term 37w 0d 0h 08m 0h 08m 7 lb 9.9 oz (3.455 kg) M Vag-S pont Epidur al Y Livin g 7 9 OPAL ,REICH IE BABY El , Meghnaf er Sheila, CNM Delivery Location:[facility] Last Filed Vital Signs Vital Sign Reading Time Taken Comments Blood Pressure 98/50 05/16/2025 4:17 PM EDT Pulse 110 11/19/2021 1:40 PM EST Temperature 36.8 C (98.2 F) 05/16/2025 4:17 PM EDT Respiratory Rate 18 08/16/2021 7:38 AM EDT Oxygen Saturation 97% 11/19/2021 1:40 PM EST Inhaled Oxygen Concentration - - Weight 53.1 kg (117 lb) 05/16/2025 4:17 PM EDT Height 162.6 cm (5' 4 ) 05/16/2025 4:17 PM EDT Body Mass Index 20.08 05/16/2025 4:17 PM EDT Plan of Treatment Health Maintenance Due Date Last Done Comments Cervical Cancer Screening 2016 Pap Smear 2016 COVID-19 Vaccine ( season) 2025 Influenza Vaccine (#1) 2025 3, 07/31/2020, 07/30/2020, Additional history exists HPV/Pap Cotest 2025 Annual Wellness Exam 01/09/2026 01/09/2025 DTaP/TDaP/Td (9 - Td or Tdap) 05/17/2030 05/17/2020, 11/19/2016, 04/29/2015, Additional history exists Hepatitis B Vaccine Completed 05/17/2020, 06/18/2019, 08/10/1996 Meningococcal B Vaccine Aged Out No l onger eligible based on patient's age to complete this topic Pneumococcal Vaccine 0-49 Aged Out No longer eligible based on patient's age to complete this topic Goals Goal Patient Goal Type Associated Problems Recent Progress Patient-Stated? 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
--- OUTSIDE RECORDS SUMMARY | 2025-08-10 10:46 | XMS_ITS | Clinical Summary ---
Author Organization [facility] Address [address] [place] [id number] Phone [email or web address] Care Team Providers Care Propulsion Systems Engineer Name Role Phone Dariel Gaston DO Primary Care Provider [phone] Allergies Active Allergy Reactions Criticality Noted Date Comments Lactose GI intolerance 10/07/2021 Milk-Related Compounds Nausea And Vomiting Medium 11/2019 Medications aspirin-acetami nophen-caffeine (EXCEDRIN MIGRAINE) 250-250-65 MG per tablet Take 2 tablets by mouth. Active DULoxetine (CYMBALTA) [address] capsule 05/25/2023 Activ e Tirzepatide-Rd ght Management (Zepbound) 5 MG/0.5ML solution auto-injector Inject 5 mg under the skin every 7 (seven) days. 12/03/2023 Active methocarbamol (ROBAXIN) 750 MG tablet Take 750 mg by mouth every 8 (eight) hours if needed. 01/05/2024 Active diclofenac (VOLTAREN) 75 MG EC tablet Take 75 mg by mouth in the morning and 75 mg in the evening. Do not crush, chew, or split.. Active Active Problems No known active problems Resolved Problems Problem Noted Date Diagnosed Date Resolved Date Low back strain 04/24/2023 04/24/2023 Social History Tobacco Use Types Packs/Day Years Used Date Smoking Tobacco: Never Smokeless Tobacco: Current Chew Tobacco Cessation:Ready to Q uit: Not Asked; Counseling Given: Not Answered Intimate Partner Violence Answer Date R ecorded Insults You Not on file 10/05/2021 Threatens You Not on file 10/05/2021 Screams at You Not on file 10/05/2021 Physically Hurt Not on file 10/05/2021 Intimate Partner Violence Score Not on file 10/05/2021 Depression Answer Date Recorded PHQ Total Score 0 05/01/2023 Stress Answer Date Recorded Stress in your Life Not on file 08/24/2024 Dealing with Stress 3 08/24/2024 Comments Unknown Sex and Gender Information Value Date Recorded Sex Assigned at Female 04/24/2023 12:09 PM CDT Legal Sex Female 6:33 PM BIOMEDICAL MANAGER Gender Identity Female 04/24/2023 12:09 PM CDT Sexual Orientation Not on file Last Filed Vital Signs Vital Sign Reading Time Taken Comments Blood Pressure 93/68 01/07/2024 6:56 PM EDT Pulse 99 01/07/2024 6:56 PM EDT Temperature 36.5 C (97.7 F) 01/07/2024 6:56 PM EDT Respiratory Rate 16 01/07/2024 6:56 PM EDT Oxygen Saturation 98% 01/07/2024 6:56 PM EDT Inhaled Oxygen Concentration - - Weight 88.9 kg (196 lb) 04/24/2023 9:31 PM EDT Height 162.6 cm (5' 4 ) 04/24/2023 9:31 PM EDT Body Mass Index 33.64 04/24/2023 9:31 PM EDT Plan of Treatment Health Maintenance Due Date Last Done Comments Cervical Cancer Screening Combo 1995 Dental Cleaning/Exam 1995 HIV Screening 1995 HPV only / HPV + Pap 1995 Hepatitis C Screening 1995 Pap only testing 1995 Hep B Infection Screening - Triple Screen 2013 Annual Preventive Exam 10/07/2022 10/07/2021 Covid-19 Immunization ( season) 2025 Influenza Immunization (#1) 2025 09/03/2023, 1 Tetanus Diphtheria and Pertussis Immunization (9 - Td or Tdap) 05/17/2030 05/17/2020, 11/19/2016, 04/29/2015, Additional history exists HIB Immunization Completed 11/18/1996, 08/1996, 1995 Polio Immunization Completed 06/01/2000, 0 01/28/1996, 1995 HPV Immunization Completed 05/27/2011, , 10/07/2010 Hepatitis B Immunization Completed 020, 06/18/2019, 08/10/1996 Varicella Immunization Aged Out 05/17/2020, 1996 No longer eligible based on patient's age to complete this topic Hepatitis A Immunization Aged Out No longer eligible based on patient's age to complete this topic Pneumococcal Immunization Aged Out No longer eligible based on patient's age to complete this topic Insurance OPT OUT NO COPAY NB Care Teams Propulsion Systems Engineer Relationship Specialty Start Date End Date Dariel Gaston DO [address] [facility] [address] [place] [address] PCP - General Family Medicine 01/24/22
--- OUTSIDE RECORDS SUMMARY | 2025-08-10 10:46 | XMS_ITS | Clinical Summary ---
Author Organization [facility] Address [address] [place] [address] Care Team Providers Care Mri Technician Name Role Phone AlekDariel galarza Primary Care Provider [phone] Mayco Guzman APRN Unavailable Unavailable Allergies Active Allergy Reactions Criticality Noted Date Comments Milk-Related Compounds Nausea And Vomiting Medium 11/2019 Medications acetaZOLAMIDE (DIAMOX) 500 MG capsule Take 4 pills twice daily 11/19/2021 Active traZODone (DESYREL) 50 MG tablet Take 50 mg by mouth nightly as needed . 09/05/2020 Active metFORMIN (GLUCOPHAGE-XR) 500 MG Tablet Extended Release 24 Hour Take 2 tablets by mouth daily with breakfast. 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 Headache 12/22/2012 Immunizations Immunization Administration Dates Next Due Hep B, Adult/11-15 YO 05/17/2020,06/18/2019 Influenza, Unspecified 07/30/2020 MMR 04/29/2015 MMRV 05/17/2020 PPD Test 05/16/2020,06/18/2019 Tdap 05/17/2020,04/29/2015 Social History Tobacco Use Types Packs/Day Years Used Date Smoking Tobacco: Never Smokeless Tobacco: Never Alcohol Use Standard Drinks/Week Comments Not Currently 0 (1 standard drink = 0.6 oz pur e alcohol) very rare Comments Unknown Sex and Gender Information Value Date Recorded Sex Assigned at Female 12/25/2021 6:04 AM EST Legal Sex Female 4:06 PM EST Gender Identity Female 12/25/2021 6:04 AM EST Sexual Orientation Straight 12/25/2021 6: 04 AM EST Last Filed Vital Signs Vital Sign Reading Time Taken Comments Blood Pressure 118/75 01/15/2022 2:22 PM EDT Pulse 95 01/15/2022 2:22 PM EDT Temperature 36.3 C (97.3 F) 01/15/2022 2:22 PM EDT Respiratory Rate 16 01/15/2022 2:22 PM EDT Oxygen Saturation 97% 01/15/2022 2:22 PM EDT Inhaled Oxygen Concentration - - Weight 97.4 kg (214 lb 11.7 oz) 01/15/2022 8:56 AM EDT Height 162.6 cm (5' 4 ) 02/12/2022 10:5 8 AM EDT Body Mass Index 39.27 01/15/2022 8:56 AM EDT Plan of Treatment Health Maintenance Due Date Last Done Comments Cervical Cancer Screening 2016 Hepatitis B (HepB) Vaccine ( 3 of 3 - 19+ 3-dose series) 07/12/2020 05/17/2020, 06/18/2019 HPV Vaccine (1 - 3-dose SCDM series) 2022 Annual SDOH Screening 10/19/2024 Influenza Vaccine (#1) 2025 07/30/2020 Tdap/Td Vaccine >11 yo (3 - Td or Tdap) 05/17/2030 05/17/2020, 04/29/2015 Haemophilus Influenzae Type B (Hib) Vaccine Aged Out No longer eligible b ased on patient's age to complete this topic Hepatitis A (HepA) Vaccine Aged Out N o longer eligible based on patient's age to complete this topic Meningococcal ACWY Aged Out No longer eligible based on patient's age to complete this topic Pneumococcal Vaccines 6-49 y o Risk Aged Out No longer eligible b ased on patient's age to complete this topic Polio (IPV) Aged Out No longer eligi ble based on patient's age to complete this topic Rotavirus (RV) Vaccine Aged Out No lo nger eligible based on patient's age to complete this topic Insurance [facility] Care Teams Mri Technician Relationship Specialty Start Date End Date Draiel Gaston DO [address] [place] [address] PCP - General Family Medicine 12/13/21 Mayco Guzman APRN [address] [place] [id number] 12/07/21
== END 2025-08-10 23:59 | disposition home or self-care (01) ==
LOC: RAD 10:12
PROVIDERS: PCP Family Medicine; Visit Provider Physician Assistant
DX: M47.814 Spondylosis without myelopathy or radiculopathy, thoracic region (principal); M54.16 Radiculopathy, lumbar region; M54.12 Radiculopathy, cervical region; Z98.1 Arthrodesis status
CPT/HCPCS: 72084

== ENCOUNTER 2025-08-21 14:49 | Outpatient (CLI) | payer BC, SELFPAY ==
--- NOTE | 2025-08-21 14:51 | MR_ITS ---
FINAL REPORT TECHNIQUE: Multiplanar and multisequence imaging of the lumbar spine was obtained without contrast. CLINICAL HISTORY: RADICULOPATHY COMPARISON: 07/22/2024 FINDINGS: There is normal alignment of the lumbar vertebral bodies in the sagittal plane. There are changes from posterior fusion at L5-S1. Vertebral body height is preserved. The spinal cord ends at the level of L1. There is normal signal intensity within the substance of the distal spinal cord. No acute bone marrow edema or pathologic marrow replacement. No acute paraspinal abnormality is identified. L1-2: No focal disc herniation, central canal stenosis or neuroforaminal narrowing. L2-3: No focal disc herniation, central canal stenosis or neuroforaminal narrowing. L3-4: Bilateral facet osteoarthropathy. No focal disc herniation, central canal stenosis or neuroforaminal narrowing. L4-5: An annular disc bulge and an annular fissure, similar to prior. No focal disc herniation, central canal stenosis or neuroforaminal narrowing. L5-S1: This level is fused. Neuroforaminal is somewhat limited due to artifact but there is likely mild right greater than left neuroforaminal narrowing. IMPRESSION: Degenerative and postsurgical changes. Reviewed, Interpreted and Dictated by Tea De La Rosa MD Transcribed by Radha Flores Authenticated and [facility]
--- OUTSIDE RECORDS SUMMARY | 2025-08-21 14:51 | XMS_ITS | Clinical Summary ---
Author Organization [facility] Address [address] [place] [address] Care Team Providers Care Furniture Shampooer Name Role Phone AlekDariel galarza Primary Care Provider [phone] Mayco Guzman APRN Unavailable Unavailable Allergies Active [...] patient's age to complete this topic Insurance [facility] Care Teams Furniture Shampooer Relationship Specialty Start Date End Date Dariel Gaston DO [address] [place] [address] PCP - General Family Medicine 12/13/21 Mayco Guzman APRN [address] [place] [id number] 12/07/21
--- OUTSIDE RECORDS SUMMARY | 2025-08-21 14:51 | XMS_ITS | Clinical Summary ---
Author Organization [facility] Address [address] [place] [address] Phone Care Team Providers Care Automobile And Property Underwriter Name Role Phone Nazia Gallegos MD Unavailable [phone] Dariel Gaston DO Primary Care Provider [phone] Dee Dee Cutler MD Unavailable [phone] Allergies Active Allergy Reactions Criticality Noted [...] to return. Most recently saw neurosurgery in [place] and a stent was attempted but aborted [...] at 20 weeks gestation to evaluate anatomy. Immunizations Immunization Administration Dates Next Due DTP/HiB [...] Grandmother Marlen Joseph Stroke Paternal Grandmother Marlen Joseph Cancer Paternal Uncle Cataracts Neg Hx Macular [...] al N Livin g 9 9 [address], [facility] Delivery Location:[facility] 2016 Term 37w 0d 0h 08m 0h 08m 7 lb 9.9 oz (3.455 kg) M Vag-S pont Epidur al Y Livin g 7 9 DAM[address] JOSE[address] IE BABY El , Julia Sosa, CN Delivery Location:[facility] Last Filed Vital Signs Vital Sign [...] ( season) 2025 Influenza Vaccine (#1) 2025 , 07/31/2020, 07/30/2020, Additional history exists HPV/Pap Cotest [...] Free Lifestyle No Bekah Hernandez RMA Insurance [employer] P[employer] Advance Directives For more information, please contact: [phone] Documents on File Type Date Recorded 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 [employer] ORDER 11/25/2016 2:37 PM * Full Code (Latest Code Status on File) Date Activated Date Inactivated Comments 11/19/2016 2:23 AM 11/21/2016 7:45 PM * Full Code Date Activated Date Inactivated Comments 04/28/2015 7:03 AM 04/30/2015 4:57 PM Care Teams Automobile And Property Underwriter Relationship Specialty Start Date End Date Dariel Gaston DO [address] [place] [address] PCP - General Family Medicine 05/25/19 Nazia Gallegos MD [address] [facility] [address] [place] [address] Physician Obstetrics & Gynecology 10/10/14 Dee Dee Cutler MD [address] [facility] [address] [place] [address] Consulting Physician Ophthalmology 08/20/20
== END 2025-08-21 23:59 | disposition home or self-care (01) ==
LOC: RAD 14:49
PROVIDERS: PCP Family Medicine; Visit Provider Physician Assistant
DX: M47.26 Other spondylosis with radiculopathy, lumbar region (principal); M51.16 Intervertebral disc disorders with radiculopathy, lumbar region; Z98.1 Arthrodesis status
CPT/HCPCS: 72148

== ENCOUNTER 2025-09-05 11:00 | Outpatient (RCR) | payer BC, SELFPAY | END 2025-09-05 23:59 | disposition home or self-care (01) | LOC: PT 11:00 | PROVIDERS: Visit Provider Physician Assistant | DX: M96.1 Postlaminectomy syndrome, not elsewhere classified (principal); Z98.1 Arthrodesis status | CPT/HCPCS: 97110; 97530 ==

== ENCOUNTER 2025-09-06 11:36 | Emergency (ER) | payer BC, SELFPAY ==
[2025-09-06 11:56] VITALS: BP 117/74; PULSE 105; RESP 18; TEMP 37.2; O2SAT 99; BMI 19.5
--- OUTSIDE RECORDS SUMMARY | 2025-09-06 13:11 | XMS_ITS | Clinical Summary ---
Author Organization [facility] Address [address] [place] [address] Care Team Providers Care Tank Carpenter Name Role Phone AlekDariel galarza Primary Care Provider [phone] Mayco Guzman APRN Unavailable Unavailable Allergies Active [...] patient's age to complete this topic Insurance [facility] Care Teams Tank Carpenter Relationship Specialty Start Date End Date Dariel Gaston DO [address] [place] [address] PCP - General Family Medicine 12/13/21 Mayco Guzman APRN [address] [place] [id number] 12/07/21
--- OUTSIDE RECORDS SUMMARY | 2025-09-06 13:11 | XMS_ITS | Clinical Summary ---
Author Organization [facility] Address [address] [place] [address] Phone Care Team Providers Care Converting Technician Name Role Phone Nazia Gallegos MD Unavailable [phone] Dariel Gaston DO Primary Care Provider [phone] Dee Dee Cutler MD Unavailable [phone] Allergies Active Allergy Reactions Criticality Noted [...] to return. 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 [employer] ORDER 11/25/2016 2:37 PM * Full Code (Latest Code Status on File) Date Activated Date Inactivated Comments 11/19/2016 2:23 AM 11/21/2016 7:45 PM * Full Code Date Activated Date Inactivated Comments 04/28/2015 7:03 AM 04/30/2015 4:57 PM Care Teams Converting Technician Relationship Specialty Start Date End Date Dariel Gaston DO [address] [place] [address] PCP - General Family Medicine 05/25/19 Nazia Gallegos MD [address] [facility] [address] [place] [address] Physician Obstetrics & Gynecology 10/10/14 Dee Dee Cutler MD [address] [facility] [address] [place] [address] Consulting Physician Ophthalmology 08/20/20
--- OUTSIDE RECORDS SUMMARY | 2025-09-06 13:11 | XMS_ITS | Clinical Summary ---
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
--- NOTE | 2025-09-06 13:30 | CT_ITS ---
FINAL REPORT TECHNIQUE: Thin section axial images were obtained through the lumbar spine without contrast. Sagittal and coronal reconstruction images were obtained from the axial data. Exam was performed using dose reduction techniques. CLINICAL HISTORY: numbness in right lower leg/has spinal stimulator prior mri and xray sent COMPARISON: None FINDINGS: There are changes from posterior fusion at L5-S1. There is no acute fracture or acute malalignment of the lumbar spine. Vertebral body height is preserved. Mild multilevel degenerative disc disease is noted. There is no significant central stenosis. Paraspinal soft tissues are within normal limits. There is no paraspinal mass or fluid collection. IMPRESSION: Postoperative changes without acute osseous abnormality of the lumbar spine. Reviewed, Interpreted and Dictated by Tea De La Rosa MD Transcribed by Millie Brand Authenticated and [facility]
--- NOTE | 2025-09-06 13:41 | ED_ITS ---
<Statement entered by Axel Dotson MD - 09/06/25 19:55> I was consulted by the SAIDA, and we discussed the complexity of the problems being addressed. I approve the treatment and management plan for this patient's care in the emergency department, thus performing a substantive portion of the medical decision making. Axel Dotson MD Discharge Plan Disposition Patient Disposition: Home, Self-Care Prescriptions Prescriptions: No Action duloxetine 30 mg capsule,delayed release(DR/EC) 30 mg PO DAILY Zepbound 10 mg/0.5 mL pen injector 10 mg SQ Q7D Referrals Follow up/Referrals: Dariel Gaston [Primary Care Provider, Medical] - See instructions Activity Restrictions/Add. Instructions Additional Instructions/Restrictions: Please follow-up with your surgeon that did your recent fusion. All your testing here was negative. If you have worsening symptoms or bowel or bladder problems please return immediately. Clinical Impressions Clinical Impression: Leg pain, right Instructions Patient Instructions: DI for Leg Pain Print Language Print Language: Burundian Discharge ED Provider: Axel Dotson General Adult HPI General Chief complaint: PAIN Stated complaint: Right leg numb since 09/05- spinal fusion >1 year Time Seen by Provider: 09/06/25 13:23 Mode of Arrival: Ambulatory Source of Information: Patient Description of Symptoms (Recalled from ER Triage Doc. by RN): Pt presents with c/o right leg numbess. Pt has a h/o previous spinal fusion and SCS. Pt states this is similar to previous episodes, but she is concerned because the numbess usually goes away after a few hours. This time, the numbness has stayed since last night and has travelled to the back of her leg. History of Present Illness HPI narrative: 30-year-old female presents to the ED today with complaint of numbness in her right leg from her knee down to her toes. She says she started yesterday with both of her legs going numb. She says this is typical for her so she adjusted her spinal stimulator and her left stopped but now her right continued. She says it is more like a sharp stabbing pain. She says this will happen and will go away since she has had her spinal fusion. She has a spinal stimulator so she will adjust often. She says typically this will not stay for this long. She has no redness, no swelling and no injury to that right lower leg. She has had an MRI recently and she says she may have to have another spinal fusion on her L3-L4. She had a spinal fusion over a year ago on her L5-S1. They are investigating doing injections but she is going to get a second opinion Related Data Home Medications ?Medication ?Instructions ?Recorded ?Confirmed duloxetine 30 mg capsule,delayed 30 mg PO DAILY 09/06/25 release tirzepatide (weight loss) 10 10 mg SQ Q7D 09/06/25 mg/0.5 mL subcutaneous pen injector (Zepbound) Allergies Allergy/AdvReac Type Severity Reaction Status Date / Time milk AdvReac Mild Verified 06/11/21 12:27 [facility] Disclaimer: The information contained in this section may have been updated after the patient was seen, as this information can be updated by other users. Social History Smoking Status: Never smoker second hand exposure: No alcohol intake: never substance use type: other current occupational status: other Travel in the last 8 weeks?: None household members: significant other housing: apartment current occupational exposures/hazards: No caffeine: Yes Have you lived/traveled outside [place] in past 30 days?: No Contact w/someone who lives/traveled outside US past 30 days?: No Exposure to someone with infectious disease in past 14 days?: No Do you have a fever (greater than 100.4 F or 38 C)?: No Have you tested positive for COVID-19?: No Exposed to someone with COVID-19 in past 14 days?: No Do you have a sore throat?: No Do you have a cough?: No Do you have any weakness?: No Do you have any diarrhea?: No Are you experiencing any unusual bleeding?: No Do you have any muscle aches/pain?: No Do you have any abdominal pain?: No Are you experiencing loss of taste or smell?: No Other Medical History Have you received the Flu Vaccine for this season: Yes Have you received the Pneumonia Vaccine: No ROS Obtained: Yes Systems reviewed as appropriate & no additional complaints except as documented Constitutional Constitutional: Reports as per HPI Physical Exam General General appearance: alert and in no apparent distress Head Head exam: normocephalic Eye Eye exam: Present PERRL ENT ENT exam: Present mucous membranes moist Neck Neck exam: Present trachea midline Chest Chest inspection: Present symmetric chest wall rise Respiratory Respiratory exam: Present normal lung sounds bilaterally Cardiovascular Cardiovascular exam: Present normal rhythm, tachycardia, normal heart sounds, +S1 and +S2 Extremities Exam Extremities exam: Present full ROM, tenderness and normal capillary refill Back Exam Back exam: Present full ROM Neurological Exam Neurological exam: Present alert and oriented X3 Psychiatric Psychiatric exam: Present normal affect and normal mood Skin Skin exam: Present warm and dry Medical Decision Making Medical Records Screening: Per USPSTF and CDC recommendations, given the prevalence of disease in our region, it is our hospital?s policy to screen for HIV and viral Hepatitis for all patients aged 18 and over and those with ongoing risk factors. Moi Inquiry Pt receiving controlled substance: No Moi was queried for this patient: No Vital Signs: 09/06/25 11:56 09/06/25 14:38 Temperature 98.9 F Temperature Source Oral Pulse Rate 105 H Pulse Rate [Right] 105 H Respiratory Rate 18 16 Blood Pressure 111/79 Blood Pressure [Right Arm] 117/74 Blood Pressure Mean [Right Arm] 88 Blood Pressure Source Automatic Cuff Blood Pressure Source [Right Arm] Automatic Cuff Blood Pressure Position Sitting Blood Pressure Position [Right Arm] Sitting 02 Sat by Pulse Oximetry 99 100 Oxygen Delivery Method Room Air Room Air Orders (Tests/Meds): ED MEDICATIONS Discontinued Medications Generic Name Dose Route Start Last Admin Trade Name Leda PRN Reason Stop Dose Admin Dexamethasone Sodium Phosphate 8 mg 09/06/25 13:30 09/06/25 14:48 Dexamethasone 4mg/Ml 1ml Vial IV 09/06/25 13:31 8 mg ONCE ONE Administration Morphine Sulfate 4 mg 09/06/25 13:30 09/06/25 14:48 Morphine 4mg/Ml Syringe IV 09/06/25 13:31 4 mg ONCE ONE Administration Ondansetron HCl 4 mg 09/06/25 13:30 09/06/25 14:48 Ondansetron 4mg/2ml Vial IV 09/06/25 13:31 4 mg ONCE ONE Administration Orphenadrine Citrate 30 mg 09/06/25 13:30 09/06/25 14:48 Orphenadrine Citrate 60mg/2ml Vial IV 09/06/25 13:31 30 mg ONCE ONE Administration ORDERS Category Date Time Status CT lumbar spine wo con Stat Cat Scan 09/06/25 13:30 Completed Urinalysis and Microscopic Stat Lab 09/06/25 13:31 Ordered Urine , HCG Qual. Stat Lab 09/06/25 13:31 Ordered CA venous doppler LE RT Stat Y 09/06/25 13:48 Completed Medical Decision Narrative: patient is a 30-year-old female presenting to the emergency department for evaluation of right lower leg sharp pain. Patient is hemodynamically stable and nontoxic-appearing upon arrival, afebrile. Differential diagnosis includes pain related to spinal stenosis, among others. Workup will be conducted with specific imaging, provocative tests. Initial inventions include crystalloid bolus, analgesics, antibiotics. Patient CT scan showed nothing acute. The DVT scan was also nothing acute. Patient's exam did not show anything concerning for cauda equina. Patient had a recent surgery less than a year ago. She had an MRI 2 weeks ago that showed L3- L4 problems that she is going to a pain management team about and she has a spinal stimulator that is operating correctly. She was given pain meds that did help. She is able to walk well. We discussed return precautions. Patient is safe for discharge home. She will call her surgeon for an appointment. Critical Care Critical Care Time Critical Care Time: No
--- NOTE | 2025-09-06 13:48 | CA_ITS ---
FINAL REPORT TECHNIQUE: Multiple transverse and longitudinal images were performed of the right femoral-popliteal deep venous system with augmentation and compression maneuvers. CLINICAL HISTORY: Spinal fusion 2018, spinal stimulator, right leg pain and numbness FINDINGS: Right lower extremity duplex ultrasound demonstrates normal flow in the deep venous system. There is no abnormal echogenicity to suggest thrombus. There is normal compression and augmentation. IMPRESSION: No evidence of right DVT. Reviewed, Interpreted and Dictated by Tom Felix MD Transcribed by Millie Brand Authenticated and [facility]
[2025-09-06 14:38] VITALS: BP 111/79; PULSE 105; RESP 16; O2SAT 100
[2025-09-06] MEDS: MORPHINE 4MG/ML SYRINGE 4 MG IV (14:48)
[2025-09-06] MEDS: ONDANSETRON 4MG/2ML VIAL 4 MG IV (14:48)
[2025-09-06] MEDS: ORPHENADRINE CITRATE 60MG/2ML VIAL 30 MG IV (14:48)
[2025-09-06] MEDS: DEXAMETHASONE 4MG/ML 1ML VIAL 8 MG IV (14:48)
[2025-09-06 17:05] VITALS: BP 135/74; PULSE 65; RESP 14; TEMP 36.9; O2SAT 99
== END 2025-09-06 17:07 | disposition home or self-care (01) ==
PROVIDERS: Emergency Provider Student in an Organized Health Care Education/Training Program; PCP Family Medicine
DX: M79.604 Pain in right leg (principal); R20.0 Anesthesia of skin
CPT/HCPCS: 72131; 93971; 96374; 96375; 99284; 99285; J1100; J2270; J2360; J2405